=== PATIENT | male | born 1970 ===

== ENCOUNTER 2016-09-29 03:21 | Emergency (ER) | payer SELFPAY ==
[2016-09-29 03:27] VITALS: BP 121/77; TEMP 98.2
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
[2016-09-29 04:03] VITALS: PULSE 89; RESP 16; O2SAT 100
== END 2016-09-29 03:58 | disposition home or self-care (01) ==
LOC: H.ER 03:21
DX: F10.129 Alcohol abuse with intoxication, unspecified (principal)